=== PATIENT | male | born 1975 | race Caucasian/White ===

== ENCOUNTER 2017-01-04 20:59 | Emergency (ER) | payer OTHER ==
[~2017-01-04] VITALS: Ht 182.9 cm; Wt 88.5 kg
[2017-01-04] MEDS ORDERED: IBUPROFEN800 M1 PO (21:46)
--- NOTE | 2017-01-04 21:56 | ED GI/GU/ABDOMINAL COMPLAINT ---
History of Present Illness General Chief Complaint: Abdominal Pain/Flank Pain Stated Complaint: LEFT SIDE LOW ABD PAIN Source: patient Exam Limitations: no limitations Vital Signs & Intake/Output Vital Signs & Intake/Output Vital Signs Date Time Temp Pulse Resp B/P Pulse O2 O2 Flow FiO2 Ox Delivery Rate 01/04 2312 78 16 122/75 97 Room Air 01/044 Room Air 01/047 98.7 93 16 131/85 98 Room Air Allergies Coded Allergies: NO KNOWN ALLERGIES (09/24/12) Reconcile Medications Ciprofloxacin HCl (Cipro) 500 MG TABLET 1 TAB PO BID DIVERTICULITIS Hydrocodone/Acetaminophen ([place] 5-325 Tablet) 5 MG-325 MG TABLET 1-2 TAB PO Q4-6 PRN PRN ABD PAIN Ibuprofen 800 MG TABLET 1 TAB PO PRN PAIN (Reported) Ketorolac Tromethamine 10 MG TABLET 1 TAB PO Q6P PRN ABD PAIN PATIENT TREATED WITH PARENTERAL KETOROLAC DURING EMERGENCY DEPARTMENT STAY Metronidazole (Flagyl) 500 MG TABLET 1 TAB PO Q6 DIVERTICULITIS Triage Note: RECEIVED 41 YO MALE C/O SEVERE LEFT FLANK AREA PAIN, STARTED THIS AM AT 4:30. + NAUSEA. FAMILY HX OF KIDNEY STONES. Triage Nurses Notes Reviewed? yes Onset: Abrupt Duration: hour(s):, constant, continues in ED, waxing and waning Timing: single episode today Quality/Severity: sharpness, severe, stabbing Location: left flank, left lower quadrant Activities at Onset: sleep Modifying Factors: Worsens With: breathing, movement, palpation. HPI: Patient presents for evaluation of a severe left flank and abdominal pain that woke him from sleep at about 4:30 this morning. Patient states it was about 2/ 10 in intensity initially but then about 6 AM it increased about a 4 out of 10. He states it seems to have lessened a little since then. He denies any associated dysuria or hematuria. He denies any prior episodes. Past History Travel History Traveled to [place] past 21 day No Medical History Any Pertinent Medical History? see below for history Neurological: NONE EENT: NONE Cardiovascular: NONE Respiratory: NONE Gastrointestinal: NONE Hepatic: NONE Renal: NONE Musculoskeletal: NONE Psychiatric: NONE Endocrine: NONE Blood Disorders: NONE Cancer(s): NONE Surgical History Surgical History: non-contributory Psychosocial History What is your primary language Singaporean Tobacco Use: Current Not Daily Daily Tobacco Use Amount/Type: Cigar or Pipe use daily Family History Hx Contributory? No Review of Systems Review of Systems Constitutional: Reports: no symptoms. EENTM: Reports: no symptoms. Respiratory: Reports: no symptoms. Cardiovascular: Reports: no symptoms. GI: Reports: see HPI. Genitourinary: Reports: no symptoms. Musculoskeletal: Reports: see HPI. Skin: Reports: no symptoms. Neurological/Psychological: Reports: no symptoms. Hematologic/Endocrine: Reports: no symptoms. Immunologic/Allergic: Reports: no symptoms. All Other Systems: Reviewed and Negative Physical Exam Physical Exam Gastrointestinal: see below Comments: Gen.: Well-nourished, well-developed, no acute respiratory distress. Mild distress secondary to left-sided pain. Head: Normocephalic, atraumatic. Eyes: Normal inspection bilaterally Ears: Normal inspection bilaterally Nose: Normal inspection Throat/mouth : Moist mucosa Neck: Supple, full range of motion, no goiter Heart: Regular rate and rhythm, no murmurs rubs or gallops Lungs: Clear to auscultation bilaterally with normal air entry (patient does grimace in pain when taking a deep inspiration) Chest: Nontender Back: Normal range of motion, tenderness over the left flank that reproduces the pain of the chief complaint Abdomen: Soft, tenderness over the left mid quadrant that reproduces the pain of the chief complaint, nondistended, normal bowel sounds Extremities: Normal range of motion grossly, equal radial pulses, no cyanosis clubbing or edema Neurologic: Cranial nerves grossly intact, speech is clear Skin: warm and dry Psychiatric: Calm, cooperative, no apparent delusions or hallucinations Core Measures ACS in differential dx? No Severe Sepsis Present: No Septic Shock Present: No Progress Differential Diagnosis: RENAL COLIC, PYELONEPHRITIS, DIVERTICULITIS, MUSCLE STRAIN Plan of Care: Orders Procedure Date/time Status Add-on Test (ER Only) 01/04 2209 Active LIPASE 01/04 2151 Complete URINALYSIS 01/04 2149 Complete COMPREHENSIVE METABOLIC PANEL 01/04 2149 Complete CBC WITHOUT DIFFERENTIAL 01/04 2149 Complete Current Medications Sig/Paco Start time Last Medication Dose Stop Time Status Admin Metronidazole 500 MG ONCE ONE 01/04 2300 AC (Flagyl) 01/04 2359 N/A 1 UNIT (No Carrier) Laboratory Tests 01/04/172204: Lipase Cancelled 01/04/172150: Anion Gap 13, Estimated GFR > 60, BUN/Creatinine Ratio 15.0, Glucose 89, Calcium 10.4 H, Total Bilirubin 0.9, AST 53, ALT 100 H, Alkaline Phosphatase 69, Total Protein 7.5, Albumin 4.6, Globulin 2.9, Albumin/Globulin Ratio 1.6, Lipase 53, CBC w Diff NO MAN DIFF REQ, RBC 5.03, MCV 87.1, MCH 28.3, RDW 13.3, MPV 8.2, Gran % 77.3 H, Lymphocytes % 13.0 L, Monocytes % 7.5, Eosinophils % 1.9, Basophils % 0.3, Absolute Granulocytes 11.9 H, Absolute Lymphocytes 2.0, Absolute Monocytes 1.2 H, Absolute Eosinophils 0.3, Absolute Basophils 0, PUBS MCHC 32.5 L 01/04/172144: Urinalysis LIGHT H, Urine Color YEL, Urine Clarity CLEAR, Urine pH 6.0, Ur Specific [place] 1.025, Urine Protein NEG, Urine Ketones NEG, Urine Nitrite NEG, Urine Bilirubin NEG, Urine Urobilinogen 0.2, Ur Leukocyte Esterase NEG, Ur Microscopic SEDIMENT EXAMINED, Urine RBC 1-3, Urine WBC RARE, Urine Hemoglobin TRACE-INTACT H, Urine Glucose NEG Diagnostic Imaging: Discussed w/RAD: CT Scan. Radiology Impression: PATIENT: TARIQ PRO PRESENT AGE: 41 PATIENT ACCOUNT NO: [id number] : 75 LOCATION: [facility] ORDERING PHYSICIAN: RAMIREZ RAE MD SERVICE DATE: 01/04/17 EXAM TYPE: CAT - CT ABD & PELVIS W/O IV CONTRAS EXAMINATION: CT ABDOMEN AND PELVIS WITHOUT CONTRAST CLINICAL INFORMATION: Left renal colic. Left flank and abdominal pain. COMPARISON: None. TECHNIQUE: Multidetector volumetric imaging was performed from the superior aspect of the liver through the pubic symphysis. Sagittal and coronal reformatted images were obtained on the technologist's workstation. DLP: 343 mGy-cm FINDINGS: Limited evaluation of the solid abdominal viscera in the absence of intravenous contrast. LUNG BASES: The visualized lung bases are unremarkable. LIVER, GALLBLADDER, AND BILIARY TREE: The liver is normal in size, shape, and attenuation. No focal hepatic lesion or biliary ductal dilatation is present. The gallbladder is contracted, without evidence of radiopaque gallstones, gallbladder wall thickening, or obvious pericholecystic inflammatory changes. PANCREAS: Unremarkable. SPLEEN: Unremarkable. ADRENAL GLANDS: Unremarkable. KIDNEYS AND URETERS: The kidneys are normal in size, shape and contour. No contour deforming renal lesions are identified. No renal or ureteral stones are identified and there is no hydroureteronephrosis of either kidney or renal collecting system. BLADDER: Unremarkable. GASTROINTESTINAL TRACT: Evaluation of the gastrointestinal system is notable for scattered colonic diverticulosis. Of note, there is circumferential thickening and pericolonic inflammatory changes surrounding a diverticula along the proximal to mid segment of the descending colon. This region of circumferential thickening and pericolonic inflammatory changes. Approximately 6 cm in length within the left hemiabdomen and is suspicious for acute colonic diverticulitis. There are no extraluminal foci of air to suggest perforation. No pericolonic fluid collections are identified. Abdominal and pelvic bowel loops are normal in caliber, without findings indicative of small bowel obstruction or ileus. A normal-appearing appendix is present within the right hemiabdomen. No organizing intra-abdominal or pelvic fluid collections and no free intraperitoneal air. ABDOMINAL WALL: Small fat-containing umbilical hernia. LYMPH NODES: No significant abdominal or pelvic adenopathy. VASCULAR: Normal course and caliber of the abdominal aorta and its branching vessels, without aneurysmal dilatation. Limited evaluation for vascular patency in the absence of intravenous contrast. PELVIC VISCERA: Unremarkable. OSSEOUS STRUCTURES: No acute osseous abnormality. Normal alignment of the imaged thoracolumbar spine. IMPRESSION: Colonic diverticulosis. Circumferential thickening and pericolonic inflammatory changes surrounding a diverticula along the proximal to mid segment of the descending colon, spanning approximately 6 cm in length. Primary diagnostic consideration is for acute diverticulitis of the descending colon. No extraluminal foci of air to suggest perforation. No pericolonic fluid collections. DICTATED BY: HUGO VERDUGO MD DATE/TIME DICTATED:01/04/172232 [employer]:YUNIEL DATE/ TIME TRANSCRIBED:01/04/172232 CONFIDENTIAL, DO NOT COPY WITHOUT APPROPRIATE AUTHORIZATION. <Electronically signed in Other Vendor System> SIGNED BY: HUGO VERDUGO MD 01/04/17 8882 Initial ED EKG: none Comments: 01/04/2017 11:07:13 PM I have updated Tariq on his test results. The location of the diverticulitis explains his somewhat unusual presentation for diverticulitis. He is driving home and doesn't feel much better after ketorolac. I've explained to him that I cannot medicate him with narcotic pain relievers and risk him driving home but he does agree to acetaminophen here in the emergency department along with IV antibiotics. He will sampler pickup his medications on his way home. He lives with his and children. Departure Departure Disposition: HOME OR SELF CARE Condition: Stable Clinical Impression Primary Impression: Diverticulitis of colon Referrals: EDDIE MENDOZA DO (PCP/Family) Additional Instructions: Cipro and Flagyl as prescribed for diverticulitis. Ketorolac as prescribed for pain. Add [place] if necessary for pain control. Follow-up with your primary care doctor on Saturday for reevaluation. Return if any concerns or sudden worsening. Please note that there might be incidental findings in your evaluation that are unrelated to the current emergency department visit. Please notify your primary care doctor about this emergency department visit in order to obtain and review all of the testing performed so that these incidental findings can be monitored as needed. If you had an x-ray performed, please understand that some fractures may not be seen on the initial set of x-rays. If your symptoms persist you might need a repeat set of x-rays to check for such a fracture. If you had a laceration evaluated, please understand that foreign bodies such as glass or wood may not be visible to the naked eye or on plain x-rays. If the wound becomes red, swollen, increasingly more painful or if there is any drainage from the wound, please have it reevaluated by a physician for the possibility of a retained foreign body. Thank you for choosing the [facility] Emergency Department for your care. It was a pleasure to serve you today. Ramirez Rae M.D. [facility] Departure Forms: Customer Survey General Discharge Information Prescriptions: Current Visit Scripts Ciprofloxacin HCl (Cipro) 1 TAB PO BID #20 TAB Metronidazole (Flagyl) 1 TAB PO Q6 #40 TAB Hydrocodone/Acetaminophen ([place] 5-325 Tablet) 1-2 TAB PO Q4-6 PRN PRN ABD PAIN #20 TAB Ketorolac Tromethamine 1 TAB PO Q6P PRN ABD PAIN #16 TAB PATIENT TREATED WITH PARENTERAL KETOROLAC DURING EMERGENCY DEPARTMENT STAY Critical Care Note Critical Care Note Critical Care Time: 30-74 min
[2017-01-04 21:59] LABS: ABSOLUTE BASOPHIL COUNT 0 /CUMM (0.0-0.2); ABSOLUTE EOSINOPHIL COUNT 0.3 /CUMM (0.0-0.7); ABSOLUTE GRANULOCYTE CT 11.9 /CUMM (1.4-6.5); ABSOLUTE MONOCYTE COUNT 1.2 /CUMM (0.10-0.60); BASOPHIL % 0.3 % (0.0-2.0); EOSINOPHIL % 1.9 % (0-5); GRANULOCYTE % 77.3 % (42.2-75.2); HEMATOCRIT 43.8 % (42-52); MEAN CORPUSCULAR HGB 28.3 PG (27.0-31.0); MEAN CORPUSCULAR HGB CONC 32.5 G/DL (33.0-37.0); MEAN CORPUSCULAR VOLUME 87.1 FL (80.0-94.0); MEAN PLATELET VOLUME 8.2 FL (7.4-10.4); PLATELET COUNT 243 /CUMM (130-400); RBC DISTRIBUTION WIDTH 13.3 % (11.5-14.5); RED BLOOD CELL CT 5.03 /CUMM (4.70-6.10); WHITE BLOOD CELL COUNT 15.3 /CUMM (4.8-10.8)
--- NOTE | 2017-01-04 22:47 | CT SCAN REPORT ---
EXAMINATION: CT ABDOMEN AND PELVIS WITHOUT CONTRAST CLINICAL INFORMATION: Left renal colic. Left flank and abdominal pain. COMPARISON: None. TECHNIQUE: Multidetector volumetric imaging was performed from the superior aspect of the liver through the pubic symphysis. Sagittal and coronal reformatted images were obtained on the technologist's workstation. DLP: 343 mGy-cm FINDINGS: Limited evaluation of the solid abdominal viscera in the absence of intravenous contrast. LUNG BASES: The visualized lung bases are unremarkable. LIVER, GALLBLADDER, AND BILIARY TREE: The liver is normal in size, shape, and attenuation. No focal hepatic lesion or biliary ductal dilatation is present. The gallbladder is contracted, without evidence of radiopaque gallstones, gallbladder wall thickening, or obvious pericholecystic inflammatory changes. PANCREAS: Unremarkable. SPLEEN: Unremarkable. ADRENAL GLANDS: Unremarkable. KIDNEYS AND URETERS: The kidneys are normal in size, shape and contour. No contour deforming renal lesions are identified. No renal or ureteral stones are identified and there is no hydroureteronephrosis of either kidney or renal collecting system. BLADDER: Unremarkable. GASTROINTESTINAL TRACT: Evaluation of the gastrointestinal system is notable for scattered colonic diverticulosis. Of note, there is circumferential thickening and pericolonic inflammatory changes surrounding a diverticula along the proximal to mid segment of the descending colon. This region of circumferential thickening and pericolonic inflammatory changes. Approximately 6 cm in length within the left hemiabdomen and is suspicious for acute colonic diverticulitis. There are no extraluminal foci of air to suggest perforation. No pericolonic fluid collections are identified. Abdominal and pelvic bowel loops are normal in caliber, without findings indicative of small bowel obstruction or ileus. A normal-appearing appendix is present within the right hemiabdomen. No organizing intra-abdominal or pelvic fluid collections and no free intraperitoneal air. ABDOMINAL WALL: Small fat-containing umbilical hernia. LYMPH NODES: No significant abdominal or pelvic adenopathy. VASCULAR: Normal course and caliber of the abdominal aorta and its branching vessels, without aneurysmal dilatation. Limited evaluation for vascular patency in the absence of intravenous contrast. PELVIC VISCERA: Unremarkable. OSSEOUS STRUCTURES: No acute osseous abnormality. Normal alignment of the imaged thoracolumbar spine. IMPRESSION: Colonic diverticulosis. Circumferential thickening and pericolonic inflammatory changes surrounding a diverticula along the proximal to mid segment of the descending colon, spanning approximately 6 cm in length. Primary diagnostic consideration is for acute diverticulitis of the descending colon. No extraluminal foci of air to suggest perforation. No pericolonic fluid collections.
[2017-01-04] MEDS ORDERED: KETOROLAC TROME10 M1 PO (23:10)
[2017-01-04] MEDS ORDERED: NORCO 5-325 TA1 EACH PO (23:10)
[2017-01-04] MEDS ORDERED: CIPRO500 M1 PO (23:10)
[2017-01-04] MEDS ORDERED: FLAGYL500 MG PO (23:10)
[2017-01-04 23:12] VITALS: BP 122/75
== END 2017-01-05 00:10 ==
LOC: ERH 20:59
PROVIDERS: Emergency Medicine
DX: K57.32 Diverticulitis of large intestine without perforation or abscess without bleeding (principal)
CPT/HCPCS: 74176; 81001; 96374; 96375; J0131; J0696; J1885

== ENCOUNTER 2017-11-23 00:08 | Observation (INO) | payer OTHER ==
[~2017-11-23] VITALS: Ht 185.4 cm; Wt 92.1 kg
[~2017-11-23 00:08] MED LIST: CIPRO500 M1 PO; FLAGYL500 MG PO; IBUPROFEN800 M1 PO; KETOROLAC TROME10 M1 PO; NORCO 5-325 TA1 EACH PO
--- NOTE | 2017-11-23 00:12 | ED CARDIAC/CP/PALPITATIONS ---
History of Present Illness General Chief Complaint: Chest Pain Stated Complaint: CHEST PAIN Source: patient, family, EMS Exam Limitations: no limitations Vital Signs & Intake/Output Vital Signs & Intake/Output Vital Signs Date Time Temp Pulse Resp B/P B/P Pulse O2 O2 Flow FiO2 Mean Ox Delivery Rate 11/23 0439 98.7 92 18 112/66 95 Room Air 11/23 0104 96.2 85 22 110/64 97 Nasal 2.0L Cannula 11/23 0032 98 Room Air 11/23 0013 95.3 83 24 134/85 98 Room Air Allergies Coded Allergies: NO KNOWN ALLERGIES (09/24/12) Triage Nurses Notes Reviewed? yes Onset: Gradual Duration: hour(s): Timing: recent history Location: central Radiation: no radiation Activities at Onset: sleep Prior Chest Pain/Card Workup: no prior chest pain Modifying Factors: Worsens With: breathing. Aspirin Today: no aspirin today Associated Symptoms: back pain HPI: 42 YO gentleman presents with chest pain, dyspnea x 1 hour, severe. "When I take a deep breath it really hurts." He notes radiating pain into his back. He had eaten pizza at approximately 9:30, along with some beer. He awoke suddently aprpoximately at 11, 11:30 with severe central chest pain. He notes no trauma, wheezing, chills. "I just can't take a deep breath." Past History Travel History Traveled to [place] past 21 day No Medical History Any Pertinent Medical History? see below for history Neurological: NONE EENT: NONE Cardiovascular: NONE Respiratory: NONE Gastrointestinal: NONE Hepatic: NONE Renal: NONE Musculoskeletal: NONE Psychiatric: NONE Endocrine: NONE Blood Disorders: NONE Cancer(s): NONE Surgical History Surgical History: non-contributory Psychosocial History What is your primary language Sinhala Family History Hx Contributory? No Review of Systems Review of Systems Constitutional: Reports: no symptoms. EENTM: Reports: no symptoms. Respiratory: Reports: no symptoms. Cardiovascular: Reports: no symptoms. GI: Reports: no symptoms. Genitourinary: Reports: no symptoms. Musculoskeletal: Reports: no symptoms. Skin: Reports: no symptoms. Neurological/Psychological: Reports: no symptoms. Hematologic/Endocrine: Reports: no symptoms. Immunologic/Allergic: Reports: no symptoms. All Other Systems: Reviewed and Negative Physical Exam Physical Exam General Appearance: well developed/nourished, moderate distress Head: atraumatic, normal appearance Eyes: Bilateral: normal appearance. Ears, Nose, Throat: normal pharynx, normal ENT inspection Neck: normal inspection, supple, full range of motion Respiratory: diminished breath sounds bilaterally Cardiovascular: regular rate/rhythm Gastrointestinal: normal bowel sounds, soft, non-tender, no organomegaly Back: normal inspection, normal range of motion Extremities: normal inspection, normal capillary refill, normal range of motion, no edema Neurologic/Psych: no motor/sensory deficits, awake, alert, oriented x 3 Skin: intact, normal color, warm/dry Core Measures ACS in differential dx? Yes No ASA d/t aspirin ordered CVA/TIA Diagnosis No Sepsis Present: No Sepsis Focused Exam Completed? No Progress Differential Diagnosis: AMI, aortic dissection, CHF/pulm edema, costochondritis, musculoskeletal pain, pneumonia Plan of Care: Orders Procedure Date/time Status Heart Healthy Diet 11/23 B Active Patient Data 11/23 524 Active Saline Lock 11/[address] in observation 11/23 517 Active Misc Message 11/23 517 Active ED Holding Orders 11/23 517 Active Vital Signs 11/23 517 Active Code Status 11/23 517 Active EKG 11/23 0419 Active TROPONIN LEVEL 11/23 0315 Complete EKG 11/23 0315 Active Intake & Output 11/23 0032 Active RAPID VIRAL INFLUENZA A 11/23 0013 Complete TROPONIN LEVEL 11/23 0013 Complete LIPASE 11/23 0013 Complete HEPATIC FUNCTION PANEL 11/23 0013 Complete ETHANOL 11/23 0013 Complete D-DIMER 11/23 0013 Complete CBC WITHOUT DIFFERENTIAL 11/233 Complete BASIC METABOLIC PANEL 11/23 0013 Complete AMYLASE 11/23 0013 Complete EKG 11/23 0010 Active Laboratory Tests 11/23/17 0329: Troponin I < 0.01 11/23/17 0015: Anion Gap 17 H, Estimated GFR > 60, BUN/Creatinine Ratio 15.6, Glucose 101 H, Calcium 10.0, Total Bilirubin 0.6, Direct Bilirubin 0.3, AST 66 H, ALT 108 H, Alkaline Phosphatase 68, Troponin I < 0.01, Total Protein 7.9, Albumin 5.0, Amylase 46, Lipase 110, D-Dimer High Sensitivty < 200, CBC w Diff NO MAN DIFF REQ, RBC 5.13, MCV 86.8, MCH 28.6, MCHC 33.0, RDW 13.2, MPV 8.3, Gran % 58.9, Lymphocytes % 29.5, Monocytes % 6.4, Eosinophils % 4.7, Basophils % 0.5, Absolute Granulocytes 6.3, Absolute Lymphocytes 3.2, Absolute Monocytes 0.7 H, Absolute Eosinophils 0.5, Absolute Basophils 0.1, Serum Alcohol 115.0 Microbiology 11/23 0017 NASOPHARYN: Influenza Virus A & B Rapid Smear - COMP Diagnostic Imaging: Viewed by Me: CT Scan. Discussed w/RAD: CT Scan. Radiology Impression: PATIENT: TARIQ PRO PRESENT AGE: 42 PATIENT ACCOUNT NO: [id number] : 75 LOCATION: [facility] ORDERING PHYSICIAN: Luisito Gomez MD SERVICE DATE: 11/23/17 EXAM TYPE: CAT - CTA CHEST-PULMONARY EMBOLISM EXAMINATION: CT ANGIOGRAM OF THE CHEST WITH AND WITHOUT CONTRAST (CT PULMONARY ANGIOGRAM FOR PE) CLINICAL INFORMATION: SEVERE PAIN, PLEURISY, ?pe VS AORTIC DISSECTION COMPARISON: None TECHNIQUE: Prior to contrast administration, noncontrast localization images were obtained. Subsequently, multidetector volumetric imaging was performed from the thoracic inlet to below the diaphragms following the administration of 95 mL Optiray 320 intravenous contrast. No contrast reaction reported. Sagittal, coronal, and MIP oblique sagittal reformatted images were obtained on the CT workstation, uploaded to PACS, and reviewed. Total exam dose-length product 496.62 mGy-cm. FINDINGS: QUALITY OF STUDY/CONTRAST BOLUS: Satisfactory PULMONARY ARTERIES: No central or segmental pulmonary emboli. THORACIC AORTA: No aneurysm or dissection. LUNG: No focal consolidation, nodules or masses. PLEURA: No pleural effusion or pneumothorax. MEDIASTINUM: Normal heart size. No pericardial effusion. No hilar or mediastinal lymphadenopathy. No evidence of septal bowing or right heart strain. CHEST WALL/AXILLA: No axillary or internal mammary lymphadenopathy. OSSEOUS STRUCTURES: No acute or suspicious osseous abnormality. UPPER ABDOMEN: Unremarkable. No reflux of contrast into the hepatic veins to suggest elevated right heart pressures. IMPRESSION: Normal CT of chest. No evidence of pulmonary embolism. Normal thoracic aorta. VTE: negative DICTATED BY : Judd Hernandez MD DATE/TIME DICTATED:11/23/17 0323 NETWORK INTERN:YUNIEL DATE/TIME TRANSCRIBED:11/23/17322 CONFIDENTIAL, DO NOT COPY WITHOUT APPROPRIATE AUTHORIZATION. <Electronically signed in Other Vendor System> SIGNED BY: Judd Hernandez MD 11/23/17336 Initial ED EKG: v3-v5 flipped t waves.. nsr... consistent with incomplete rbbb. Repeat EKG: unchanged (incomplete rbbb) Comments: ekg #3... no change Departure Departure Disposition: HOME OR SELF CARE Condition: Stable Clinical Impression Primary Impression: Chest pain Referrals: Max Bravo DO (PCP/Family) Departure Forms: Customer Survey General Discharge Information Comments 11.23.17, 4:50am... pt still with chest pain, trop/ekg's benign. no change with nitro/toradol. pt did feel better with dilaudid.... will discuss with cardiology. Observation Note Spoke With: Armando MORALES,[facility] Place Patient In: Non-ED OBS Care Area Rationale for Observation: My rational for observation is as follows . pt with chest pain of uncertain etiology.... trop/ekg benign x 2, ct angio negative. pt does not hvae reproducible chest wall pain.... discussed with dr. harmon who will evaluate patient. Pt merits repeat troponins, serial ekgs, consider echo. Critical Care Note Critical Care Note Critical Care Time: non-applicable
[2017-11-23 00:53] LABS: ABSOLUTE BASOPHIL COUNT 0.1 /CUMM (0.0-0.2); ABSOLUTE EOSINOPHIL COUNT 0.5 /CUMM (0.0-0.7); ABSOLUTE GRANULOCYTE CT 6.3 /CUMM (1.4-6.5); ABSOLUTE LYMPH COUNT 3.2 /CUMM (1.2-3.4); ABSOLUTE MONOCYTE COUNT 0.7 /CUMM (0.10-0.60); BASOPHIL % 0.5 % (0.0-2.0); EOSINOPHIL % 4.7 % (0-5); GRANULOCYTE % 58.9 % (42.2-75.2); HEMATOCRIT 44.5 % (42-52); MEAN CORPUSCULAR HGB 28.6 PG (27.0-31.0); MEAN CORPUSCULAR VOLUME 86.8 FL (80.0-94.0); MEAN PLATELET VOLUME 8.3 FL (7.4-10.4); PLATELET COUNT 339 /CUMM (130-400); RBC DISTRIBUTION WIDTH 13.2 % (11.5-14.5); RED BLOOD CELL CT 5.13 /CUMM (4.70-6.10); WHITE BLOOD CELL COUNT 10.7 /CUMM (4.8-10.8)
--- NOTE | 2017-11-23 03:37 | CT SCAN REPORT ---
EXAMINATION: CT ANGIOGRAM OF THE CHEST WITH AND WITHOUT CONTRAST (CT PULMONARY ANGIOGRAM FOR PE) CLINICAL INFORMATION: SEVERE PAIN, PLEURISY, ?pe VS AORTIC DISSECTION COMPARISON: None TECHNIQUE: Prior to contrast administration, noncontrast localization images were obtained. Subsequently, multidetector volumetric imaging was performed from the thoracic inlet to below the diaphragms following the administration of 95 mL Optiray 320 intravenous contrast. No contrast reaction reported. Sagittal, coronal, and MIP oblique sagittal reformatted images were obtained on the CT workstation, uploaded to PACS, and reviewed. Total exam dose-length product 496.62 mGy-cm. FINDINGS: QUALITY OF STUDY/CONTRAST BOLUS: Satisfactory PULMONARY ARTERIES: No central or segmental pulmonary emboli. THORACIC AORTA: No aneurysm or dissection. LUNG: No focal consolidation, nodules or masses. PLEURA: No pleural effusion or pneumothorax. MEDIASTINUM: Normal heart size. No pericardial effusion. No hilar or mediastinal lymphadenopathy. No evidence of septal bowing or right heart strain. CHEST WALL/AXILLA: No axillary or internal mammary lymphadenopathy. OSSEOUS STRUCTURES: No acute or suspicious osseous abnormality. UPPER ABDOMEN: Unremarkable. No reflux of contrast into the hepatic veins to suggest elevated right heart pressures. IMPRESSION: Normal CT of chest. No evidence of pulmonary embolism. Normal thoracic aorta. VTE: negative
--- NOTE | 2017-11-23 05:36 | History & Physical ---
Alcides MORALES,[facility] 11/23/17 0534: General Information and HPI Statement: I have seen and personally examined TARIQ PRO and documented this H&P. The patient is a 42 year old M who presented with a patient stated chief complaint of chest pain. Source of Information: patient Exam Limitations: no limitations History of Present Illness: This is a 42-year-old gentleman with no cardiac hx and GERD the only significant past medical history is presenting with an acute onset of chest pain and shortness of breath. Patient reports being awoken by sudden chest pain around 11 PM. Describes the pain as constant, sharp /stabbing located at retrosternal area. The pain is pleuritic and positional since he reports worsened by laying down amd when taking deep breaths. He reports some radiation of the pain to his back and left arm. Associated symptoms includenon productive cough which developed later after the chest pain. Denies any diaphoresis, heartburn/GERD symptoms, chest trauma, or illicit drug use. He received nitroglycerin which he reports did not help with the pain. Review of system is negative for any upper respiratory infection, recent infection, or any sick contacts. Of note, patient reports he did have some similar chest pain about 1-2 years ago and underwent a cardiac stress test at [facility] which was unremarkable for any ischemic findings, and his symptoms were presumed to be secondary to his GERD. Allergies/Medications Allergies: Coded Allergies: NO KNOWN ALLERGIES (09/24/12) Past History Travel History Traveled to [place] past 21 day No Medical History Neurological: NONE EENT: NONE Cardiovascular: NONE Respiratory: NONE Gastrointestinal: NONE Hepatic: NONE Renal: NONE Musculoskeletal: NONE Psychiatric: NONE Endocrine: NONE Blood Disorders: NONE Cancer(s): NONE Surgical History Surgical History: non-contributory Past Family/Social History Psychosocial History ETOH Use: occasional use Review of Systems Review of Systems Constitutional: Reports: see HPI. EENTM: Reports: see HPI. Cardiovascular: Reports: chest pain. Respiratory: Reports: cough. GI: Reports: no symptoms. Genitourinary: Reports: no symptoms. Musculoskeletal: Reports: no symptoms. Skin: Reports: no symptoms. Neurological/Psychological: Reports: no symptoms. Hematologic/Endocrine: Reports: no symptoms. Immunologic/Allergic: Reports: no symptoms. All Other Systems: Reviewed and Negative Exam & Diagnostic Data Last 24 Hrs of Vital Signs/I&O Vital Signs Date Time Temp Pulse Resp B/P B/P Pulse O2 O2 Flow FiO2 Mean Ox Delivery Rate 11/23 0610 98.0 90 18 114/74 97 Room Air 11/23 0439 98.7 92 18 112/66 95 Room Air 11/23 0104 96.2 85 22 110/64 97 Nasal 2.0L Cannula 11/23 0032 98 Room Air 11/23 0013 95.3 83 24 134/85 98 Room Air Intake & Output 11/23 0800 11/23 0000 11/22 1600 Intake Total 30 Output Total Balance 30 Intake, Oral 30 Patient 92.079 kg Weight Weight Reported by Patient Measurement Method Physical Exam General Appearance Alert, Oriented X3, Cooperative Skin No Significant Lesion Skin Temp/Moisture Exam: Warm/Dry Sepsis Skin Exam (color): Normal for Ethnicity HEENT Mucous Membr. moist/pink Neck Supple, No JVD Lymphatic Cervical nl Cardiovascular Regular Rate, Normal S1, Normal S2 Lungs Clear to Auscultation, Normal Air Movement Abdomen Normal Bowel Sounds, Soft, No Tenderness Neurological Normal Gait, Normal Speech, Strength at 5/5 X4 Ext, Normal Tone Extremities No Clubbing, No Cyanosis, Normal Pulses, No Tenderness/Swelling Assessment/Plan Assessment: 42-year-old gentleman with no cardiac history is presenting with acute onset of pleuritic chest pain with shortness of breath in the setting of two sets of negative troponins and nonspecific T-wave abnormalities on the precordial lead. Patient Atypical chest pain. The pleuritic and positional nature of the pain with negative troponins [address]-T wave elevations in EKG, and no relief with NTG is suggestive of non-ACS pain. His history of GERD warrants strong consideration possible explanation, however patient reports he is aware of the pain expressing GERD and is adamant that this is not like GERD. Negative for PE as embolism was ruled out through CT. Possibly patients chest pain and shortness of breath is secondary to pleurisy versus pericarditis versus costochondritis even though there was no pain on palpation of the chest wall. History of GERD. Continue Protonix Positive U tox for alcohol. Plan Place in telemetry observation for close cardiac monitoring 2 initial troponins are negative, will trend on more time NSAID therapy for probable inflammatory pathology GI cocktail as needed Will await further cardiology recommendation (ED Dr. reports that he spoke to the cylinder press feeder who is aware and will see the patient). She reports only drinking about one beer or one glass of wine per day, alcohol level is 111. Nevertheless we will have a CIWA protocol. DVT prophylaxis: Lovenox CODE STATUS full As Ranked By This Provider Problem List: 1. Chest pain 2. Alcohol intoxication Core Measures/Misc (06/30) Acute Coronary Syndrome ACS Diagnosis: No Congestive Heart Failure Congestive Heart Failure Diagnosis No Cerebrovascular Accident CVA/TIA Diagnosis: No VTE (View Protocol) VTE Risk Factors Acute Medical Illness No Mechanical VTE Prophylaxis d/t N/A MechProphylax Ordered No VTE Pharm Prophylaxis d/t NA PharmProphylax ordered Sepsis (View protocol) Sepsis Present: No Junior Herman MD 11/23/17 9847: General Information and HPI Allergies/Medications Home Med list Ibuprofen 800 MG TABLET 800 MG PO TID PRN Pain control Attending MD Review Statement Attending Statement Attending MD Statement: examined this patient, discuss w/resident/PA/DATA SECURITY ADMINISTRATOR, agreed w/resident/PA/DATA SECURITY ADMINISTRATOR, discussed with family, reviewed EMR data (avail), discussed with nursing, reviewed images, amended to note Attending Assessment/Plan: The patient is a 42 yo male with h/o GERD and known IVCD (right bundle variety) on EKG who presented at the [facility] with acute onset of chest pain and dyspnea. He woke up at 11 pm. The patient was retrosternal and slightly pleuritic. He did have some mild cough. His EKG did show mild T wave changes from prior (inverted T waves in precordial leads). CTA was negative for PE. Physical Exam: VS: T 98.0, P 90, R 18, BP 114/74, PO 98% RA HEENT: eyes- PERRLA, EOMI edson- dry mucosa Neck: no adenopathy or bruits Chest: clear, + mild tenderness left costal cartilage, however patient states different than his deeper pain Cor: RRR nl S1 S2 w/o murm or rub Abd: BS+, soft, NT, -HSM Ext: no edema, tenderness, pulses 2+ Neuro: alert & oriented x 3, non-focal Impression/Plan: #Substernal Chest Pain- with some slight reproduction of pain on palpation of costal cartilages. Suspect musculoskeletal etiology. Plan: Appreciate Cardiology input. Will continue Ibuprofen- morphine for more severe pain. Will follow pain- check ECHO. #Abnormal Transaminases- mild elevation with normal bili/AP. Did drink some alcohol prior to admit. Doubt biliary pathology. Plan: Follow-up LFTs.
[2017-11-23 08:51] VITALS: BP 120/68
--- NOTE | 2017-11-23 13:54 | Cons- Cardiology ---
General Information and HPI Consulting Request Date of Consult: 11/23/17 Requested By: Armando MORALES,Lorne Reason for Consult: Chest pain. Source of Information: patient, family, old records Exam Limitations: no limitations History of Present Illness: Mr. Obdulio Rose is a 42-year-old male with a history of gastroesophageal reflux disease and previous chest pain syndrome with a negative cardiac evaluation approximately 4-5 years ago who presented from home with a complaint of constant, severe ("8/10"), sharp, precordial chest discomfort that began approximately 9:30 p.m. last evening that is worse with inspiration and any movement. He states that prior to last evening he was feeling fine experiencing no symptoms prior to this event whatsoever. He denies any recent chest discomfort, palpitations, shortness of breath, orthopnea, paroxysmal nocturnal dyspnea, syncope, near syncope, lightheadedness, dizziness, or claudication. He has noted some mild bilateral lower extremity edema over the past 6 months that typically resolves overnight. He denies any history of hypertension, dyslipidemia, diabetes mellitus, vascular disease, or family history of premature atherosclerotic disease. He does admit to tobacco use. Smokes one cigar every other day. He denies any history of coronary, valvular, dysrhythmic/conduction disease, or cardiomyopathy. He does recall being told in the past that he had an abnormal electrocardiogram. He was previously treated for gastroesophageal reflux disease has not been on any occasions for this in quite some time. Allergies/Medications Allergies: Coded Allergies: NO KNOWN ALLERGIES (09/24/12) Review of Systems Review of Systems: A 14 point system review was obtained and was noncontributory, other than as above. Past History Travel History Traveled to [place] past 21 day No Medical History Blood Transfusion Hx: No Neurological: NONE EENT: NONE Cardiovascular: NONE Respiratory: NONE Gastrointestinal: NONE Hepatic: NONE Renal: NONE Musculoskeletal: NONE Psychiatric: NONE Endocrine: NONE Blood Disorders: NONE Cancer(s): NONE Surgical History Surgical History: non-contributory Psychosocial History Smoking Status: Light Tobacco Smoker ETOH Use: occasional use Exam & Diagnostic Data Vital Signs and I&O Vital Signs Date Time Temp Pulse Resp B/P B/P Pulse O2 O2 Flow FiO2 Mean Ox Delivery Rate 11/23 0851 98.9 91 20 120/68 98 Room Air 11/23 0758 99.3 100 20 120/74 98 Room Air 11/23 0610 98.0 90 18 114/74 97 Room Air 11/23 0439 98.7 92 18 112/66 95 Room Air 11/23 0104 96.2 85 22 110/64 97 Nasal 2.0L Cannula 11/23 0032 98 Room Air 11/23 0013 95.3 83 24 134/85 98 Room Air Intake & Output 11/23 1600 11/23 0800 11/23 0000 11/22 1600 11/22 0811/22 0000 Intake Total 30 Output Total Balance 30 Intake, Oral 30 Patient 203 lb 203 lb Weight Weight Reported by Patient Measurement Method Physical Exam: Well-developed, well-nourished middle-aged male in mild distress. Vital signs: See above. HEENT: Normocephalic, atraumatic, EOMI, slightly dry mucous membranes. Neck: No JVD, no bruits. Lungs: Clear to auscultation bilaterally. Heart: S1, S2 with no murmur, gallop, or rub appreciated. Abdomen: Soft, nontender, positive bowel sounds. Extremities: No edema. Pulses: Symmetrical and intact. Labs/Tae Results: Laboratory Tests 11/23 11/23 11/23 1200 1015 0329 Chemistry Troponin I (<0.11 ng/ml) < 0.01 < 0.01 Hematology ESR Westergren Pending 11/23 0015 Chemistry Sodium (137 - 145 mmol/L) 141 Potassium (3.5 - 5.1 mmol/L) 4.4 Chloride (98 - 107 mmol/L) 101 Carbon Dioxide (22 - 30 mmol/L) 24 Anion Gap (5 - 16) 17 H BUN (9 - 20 mg/dL) 14 Creatinine (0.7 - 1.2 mg/dL) 0.9 Estimated GFR (>60 ml/min) > 60 BUN/Creatinine Ratio (7 - 25 %) 15.6 Glucose (65 - 99 mg/dL) 101 H Calcium (8.4 - 10.2 mg/dL) 10.0 Total Bilirubin (0.2 - 1.3 mg/dL) 0.6 Direct Bilirubin (< 0.4 mg/dL) 0.3 AST (17 - 59 U/L) 66 H ALT (21 - 72 U/L) 108 H Alkaline Phosphatase (< 127 U/L) 68 Troponin I (<0.11 ng/ml) < 0.01 Total Protein (6.3 - 8.2 g/dL) 7.9 Albumin (3.5 - 5.0 g/dL) 5.0 Amylase (30 - 110 U/L) 46 Lipase (23 - 300 U/L) 110 Coagulation D-Dimer High Sensitivty (0 - 243 ng/ml) < 200 Hematology CBC w Diff NO MAN DIFF REQ WBC (4.8 - 10.8 /CUMM) 10.7 RBC (4.70 - 6.10 /CUMM) 5.13 Hgb (14.0 - 18.0 G/DL) 14.7 Hct (42 - 52 %) 44.5 MCV (80.0 - 94.0 FL) 86.8 MCH (27.0 - 31.0 PG) 28.6 MCHC (33.0 - 37.0 G/DL) 33.0 RDW (11.5 - 14.5 %) 13.2 Plt Count (130 - 400 /CUMM) 339 MPV (7.4 - 10.4 FL) 8.3 Gran % (42.2 - 75.2 %) 58.9 Lymphocytes % (20.5 - 51.1 %) 29.5 Monocytes % (1.7 - 9.3 %) 6.4 Eosinophils % (0 - 5 %) 4.7 Basophils % (0.0 - 2.0 %) 0.5 Absolute Granulocytes (1.4 - 6.5 /CUMM) 6.3 Absolute Lymphocytes (1.2 - 3.4 /CUMM) 3.2 Absolute Monocytes (0.10 - 0.60 /CUMM) 0.7 H Absolute Eosinophils (0.0 - 0.7 /CUMM) 0.5 Absolute Basophils (0.0 - 0.2 /CUMM) 0.1 Toxicology Serum Alcohol (<10 MG/DL) 115.0 Diagnostic Data EKG Results 11/23/2017: Sinus rhythm, possible left atrial abnormality, incomplete right bundle branch block, and nondiagnostic ST-T wave abnormalities. Other Results Chest CTA 11/23/2017: Normal CT of chest. No evidence of pulmonary embolism. Normal thoracic aorta. VTE: negative Assessment/Plan Assessment/Plan 42-[id number]-o-[id number]-m w/ hx of previously Rx'd GERD & previous CP syndrome w/ negative noninvasive evaluation 4-5 years ago who presented from home with a complaint of constant, severe ("8/10"), sharp, precordial CP that began ~9:30 p.m. last evening that is worse with inspiration and any movement. Fortunately, although his ECG is abnormal, serial troponins have not revealed any evidence of myocardial necrosis, his CTA did not reveal any evidence of pulmonary embolism/pulmonary infarction, aortic dissection, etc. and therefore suspect that the chest pain is on a noncardiac basis. As he is still quite uncomfortable, would aggressively treat with analgesics. Reasonable to obtain an echocardiogram tomorrow to assess his overall left ventricular systolic/diastolic function, rule out segmental wall motion abnormalities given his abnormal 12-lead electrocardiogram, etc. Would consider an outpatient repeat imaging stress test. Continue DVT prophylaxis. Further recommendations will follow, Thank you. Consult Acknowledgment - Thank you for your consult request.
[2017-11-23 15:18] VITALS: BP 128/68
[2017-11-23 21:41] VITALS: BP 112/64
[2017-11-24 07:07] VITALS: BP 98/48
[2017-11-24 08:25] VITALS: BP 102/78
--- NOTE | 2017-11-24 10:09 | PN- Housestaff ---
See Addendum Subjective Follow-up For: Atypical chest pain Tele-Events Since Last Visit: Sinus rhythm, normal sinus rhythm, 72-93 Subjective: This patient was a patient under observation in telemetry floor. Patient visited today, was lying in bed comfortably in no acute distress, was alert and oriented. Patient was in a good mood, family were present at the bedside No fever or chills, no shortness of breathing, no chest pain, no other events. Echocardiography results was back. ACS was ruled out. Patient was planned to discharge with recommendation to follow with PCP and doing echocardiography. Review of Systems Constitutional: Reports: see HPI. Objective Last 24 Hrs of Vital Signs/I&O Vital Signs Date Time Temp Pulse Resp B/P B/P Pulse O2 O2 Flow FiO2 Mean Ox Delivery Rate 11/24 1430 97.6 82 18 102/64 96 Room Air 11/24 0825 102/78 11/24 0707 97.9 76 18 98/48 91 Room Air 11/23 2141 98.2 70 16 112/64 95 Room Air Intake & Output 11/24 1600 11/24 0800 11/24 0000 Intake Total 500 120 600 Output Total Balance 500 120 600 Intake, Oral 500 120 600 Physical Exam General Appearance: Alert, Oriented X3, Cooperative, No Acute Distress Skin: No Significant Lesion Skin Temp/Moisture Exam: Warm/Dry Sepsis Skin Exam (color): Normal for Ethnicity HEENT: Atraumatic, EOMI, Mucous Membr. moist/pink Cardiovascular: Regular Rate, Normal S1, Normal S2 Lungs: Clear to Auscultation, Normal Air Movement Abdomen: Normal Bowel Sounds, Soft Neurological: Normal Speech Extremities: No Edema Current Medications: Current Medications Sig/Paco Start time Last Medication Dose Route Stop Time Status Admin Acetaminophen 650 MG .STK-MED ONE 11/24 0816 DC PO 11/24 0817 Acetaminophen 650 MG Q4P PRN 11/23 1815 DCD 11/23 PO 1823 Enoxaparin Sodium 40 MG DAILY 11/24 1000 DCD SC Ibuprofen 800 MG TID 11/23 0643 DCD 11/24 PO 0937 Morphine Sulfate 1 MG ONCE ONE 11/23 1944 DC 11/23 IV 11/23 Assessment/Plan Assessment: 42-year-old gentleman with no cardiac history is presenting with acute onset of pleuritic chest pain with shortness of breath in the setting of two sets of negative troponins and nonspecific T-wave abnormalities on the precordial lead. Atypical chest pain . The pleuritic and positional nature of the pain with negative troponins [address]-T wave elevations in EKG, and no relief with NTG is suggestive of non- ACS pain. His history of GERD warrants strong consideration possible explanation, however patient reports he is aware of the pain expressing GERD and is adamant that this is not like GERD. Negative for PE as embolism was ruled out through CT. Possibly patients chest pain and shortness of breath is secondary to pleurisy versus pericarditis versus costochondritis even though there was no pain on palpation of the chest wall. Patient was placed under observation telemetry floor. ACS was ruled out. Echocardiogram was done: Normal size left ventricle. Mild concentric left ventricular hypertrophy. Normal left ventricular ejection fraction visually estimated at > 55%. "pseudonormal" filling pattern of the left ventricle for age (stage 2 diastolic dysfunction). Normal right ventricular size and function. Normal atrial size. Trace mitral regurgitation. Trace tricuspid regurgitation. No evidence of pulmonary hypertension. Patient was discharged with recommendation to follow with waistline joiner lockstitch in outpatient for possible stress test. History of GERD. \\ Continue Protonix Positive U tox for alcohol. Patient was placed in Cipro protocol. Schools remained low. DVT prophylaxis: Lovenox CODE STATUS full Patient was discharged with recommendation to follow with PCP and waistline joiner lockstitch. Problem List: 1. Atypical chest pain Pain Ratin Pain Location: None Pain Goal: Pain 4 or less Pain Plan: Continue currne tplan Tomorrow's Labs & Rationales: None
[2017-11-24 14:30] VITALS: BP 102/64
--- NOTE | 2017-11-24 14:48 | ECHOCARDIOGRAM REPORT ---
TARIQ PRO Age: 42 : 1975 Gender: M Exam Date: 11/24/2017 10:26 Exam Location: 1 [address] Ht (in): 73 Wt (lb): 203 BSA: 2.19 BP: 98 / 48 Ordering Physician: Suri aGrrett, Referring Physician: Joseph Traore MD Technologist: Amber Sanchez [facility] Room Number: [id number] Indications: CHEST PAIN Rhythm: Sinus Technical Quality: Fair FINDINGS Left Ventricle Normal size left ventricle. Mild concentric left ventricular hypertrophy. No obvious regional wall motion abnormalities. Normal left ventricular ejection fraction visually estimated at >55%. "pseudonormal" filling pattern of the left ventricle for age (stage 2 diastolic dysfunction). Right Ventricle Normal right ventricular size and function. Right Atrium Normal right atrial size. Left Atrium Normal left atrial size. Mitral Valve Structurally normal mitral valve. Trace mitral regurgitation. Aortic Valve Structurally normal trileaflet aortic valve. No aortic valve stenosis or regurgitation. Tricuspid Valve Structurally normal tricuspid valve. Trace tricuspid regurgitation. No evidence of pulmonary hypertension. Right ventricular systolic pressure estimated to be within the normal range at 20 mmHg. Pulmonic Valve Pulmonic valve not well visualized, grossly normal. No pulmonic regurgitation. Pericardium No pericardial effusion. Great Vessels Normal size aortic root. Normal size inferior vena cava. CONCLUSIONS Normal size left ventricle. Mild concentric left ventricular hypertrophy. Normal left ventricular ejection fraction visually estimated at > 55%. "pseudonormal" filling pattern of the left ventricle for age (stage 2 diastolic dysfunction). Normal right ventricular size and function. Normal atrial size. Trace mitral regurgitation. Trace tricuspid regurgitation. No evidence of pulmonary hypertension. Joseph Traore M.D. (Electronically Signed) Final Date: 24 November 2017 14:48 MEASUREMENTS (Male / Female) Normal Values 2D ECHO LV Diastolic Diameter PLAX 3.9 cm 4.2 - 5.9 / 3.9 - 5.3 cm LV Systolic Diameter PLAX 2.7 cm 2.1 - 4.0 cm LV Fractional Shortening PLAX 30.8 % 25 - 46 % LV Ejection Fraction 2D Teich 59.0 % IVS Diastolic Thickness 1.3 cm LVPW Diastolic Thickness 1.1 cm LV Relative Wall Thickness 0.6 RV Internal Dim ED PLAX 2.8 cm 1.9 - 3.8 cm LVOT Diameter 2.1 cm Aortic Root Diameter 3.1 cm LA Systolic Diameter LX 3.3 cm 3.0 - 4.0 / 2.7 - 3.8 cm LA Volume 29.0 cm 18 - 58 / 22 - 52 cm Ascending Aorta Diameter 2.9 cm DOPPLER AV Peak Velocity 110.0 cm/s AV Peak Gradient 4.8 mmHg AV Mean Velocity 76.0 cm/s AV Mean Gradient 3.0 mmHg AV Velocity Time Integral 21.0 cm LVOT Peak Velocity 94.7 cm/s LVOT Peak Gradient 3.6 mmHg LVOT Mean Velocity 63.3 cm/s LVOT Mean Gradient 2.0 mmHg LVOT Velocity Time Integral 17.2 cm LVOT Stroke Volume 59.6 cm AV Area Cont Eq vti 2.8 cm AV Area Cont Eq pk 3.0 cm MV Peak Velocity 75.3 cm/s MV Peak Gradient 2.3 mmHg MV Mean Velocity 45.5 cm/s MV Mean Gradient 1.0 mmHg Mitral E Point Velocity 73.1 cm/s Mitral A Point Velocity 50.8 cm/s Mitral E to A Ratio 1.4 MV PHT Velocity 79.1 cm/s MV Deceleration Bullock 345.0 cm/s MV Pressure Half Time 68.8 ms MV Area PHT 3.2 cm MV Deceleration Time 243.0 ms TR Peak Velocity 195.0 cm/s TR Peak Gradient 15.2 mmHg Right Atrial Pressure 5.0 mmHg Pulmonary Artery Systolic Pressu 20.2 mmHg Right Ventricular Systolic Press 20.2 mmHg PV Peak Velocity 77.2 cm/s PV Peak Gradient 2.4 mmHg PV Mean Velocity 57.2 cm/s PV Mean Gradient 2.0 mmHg PV Velocity Time Integral 20.1 cm LV E' Lateral Velocity 11.7 cm/s Mitral E to LV E' Lateral Ratio 6.2 LV E' Septal Velocity 8.8 cm/s Mitral E to LV E' Septal Ratio 8.3
--- NOTE | 2017-11-24 14:53 | Patient Discharge Instructions ---
Discharge Instructions General Discharge Information You were seen/treated for: Atypical chest pain Watch for these problems: Severe chest pain, shortness of breathing, palpitation, dizziness, lightheadedness, heart racing, or worsening of any other symptoms. Special Instructions: Please follow with your PCP within one week of discharge. Please follow with her pattern mechanic within 1 week of discharge for cardiac stress test. Diet Continue normal diet: No Recommended Diet: Heart Healthy Activity Full Activity/No Limits: No Activity Self Limited: Yes Acute Coronary Syndrome Inclusion Criteria At DC or during hospital stay patient has or had the following: ACS DIAGNOSIS No Discharge Core Measures Meds if any: Prescribed or Continued at Discharge Meds if any: NOT Prescribed or Continued at Discharge Congestive Heart Failure Inclusion Criteria At DC or during hospital stay patient has or had the following: CHF DIAGNOSIS No Discharge Core Measures Meds if any: Prescribed or Continued at Discharge Meds if any: NOT Prescribed or Continued at Discharge Cerebrovascular accident Inclusion Criteria At DC or during hospital stay patient has or had the following: CVA/TIA Diagnosis No Discharge Core Measures Meds if any: Prescribed or Continued at Discharge Meds if any: NOT Prescribed or Continued at Discharge Venous thromboembolism Inclusion Criteria VTE Diagnosis No VTE Type NONE VTE Confirmed by (Test) NONE Discharge Core Measures - Per Current guidelines, there needs to be overlap - treatment for the first 5 days of Warfarin therapy. - If discharged on Warfarin prior to 5 days of - overlap therapy, the patient will need to be - assessed for post discharge needs including - *Post discharge parental anticoagulation - *Warfarin and/or parental anticoagulation education - *Follow up date to check INR post discharge At least 5 days overlap therapy as Inpatient No Meds if any: Prescribed or Continued at Discharge Note: Overlap Therapy is Warfarin and Anticoagulant Meds if any: NOT Prescribed or Continued at Discharge
[2017-11-24] MEDS ORDERED: IBUPROFEN800 M1 PO ×2 (14:55→14:56)
== END 2017-11-24 16:23 ==
LOC: ERH 00:08 → ERHI 05:18 → ENRESERV 07:11 → ENTRNSPT 08:03 → EDTRNSPTSTS 08:24 → EDTRNSPT 08:24 → 1NO 08:30 → CMPTRNSPT 08:49 → 1NO 11-24 15:06
PROVIDERS: Pediatrics
DX: R07.89 Other chest pain (principal); K21.9 Gastro-esophageal reflux disease without esophagitis; F17.200 Nicotine dependence, unspecified, uncomplicated; R06.02 Shortness of breath
CPT/HCPCS: 87804; 87804-59; 93005; 93010; 93306; 96374; 96375; G0378; G0480; J1650; J1885; J2405; J3490